=== PATIENT | male | born 1990 | race African-American/Black ===

== ENCOUNTER 2022-02-27 00:52 | Emergency (ER) | payer SELFPAY ==
[~2022-02-27] VITALS: Ht 180.3 cm; Wt 72.6 kg
[2022-02-27] MEDS ORDERED: CYCLOBENZAPRINE5 MG PO (01:12)
[2022-02-27] MEDS ORDERED: IBUPROFEN600 MG PO (01:12)
[2022-02-27] MEDS ORDERED: KETOROLAC TROMETHAMINE 60 MG/2 ML VIAL IM ONE (01:15)
[2022-02-27] MEDS ORDERED: DEXAMETHASONE SOD PHOS 10 MG/1 ML VIAL IV ONE (01:15)
[2022-02-27 01:23] VITALS: BP 126/75
[2022-02-27] MEDS ORDERED: DEXAMETHASONE SOD PHOS INJ 4 MG/ML SDV ONE (01:25)
[2022-02-27] MEDS ORDERED: KETOROLAC TROMETHAMINE 30 MG/ML VIAL ONE (01:25)
== END 2022-02-27 01:23 | disposition home or self-care (01) ==
LOC: FSED 01:11
DX: M54.50 Low back pain, unspecified (principal); R50.9 Fever, unspecified; X58.XXXA Exposure to other specified factors, initial encounter; Y99.0 Civilian activity done for income or pay; F17.210 Nicotine dependence, cigarettes, uncomplicated
CPT/HCPCS: 96372; 99282; J1100 ×2; J1885

== ENCOUNTER 2022-07-23 03:35 | Emergency (ER) | payer SELFPAY ==
[~2022-07-23] VITALS: Ht 180.3 cm; Wt 72.6 kg
[~2022-07-23 03:35] MED LIST: CYCLOBENZAPRINE5 MG PO; IBUPROFEN600 MG PO
[2022-07-23] MEDS ORDERED: CLEOCIN HCL300 MG PO (04:28)
[2022-07-23] MEDS ORDERED: ACETAMINOPHEN500 MG PO (04:28)
[2022-07-23] MEDS ORDERED: IBUPROFEN200 MG PO (04:28)
== END 2022-07-23 05:00 | disposition home or self-care (01) ==
LOC: FSED 03:38
DX: K05.00 Acute gingivitis, plaque induced (principal)
CPT/HCPCS: 99282